=== PATIENT | male | born 1960 | race Caucasian/White ===

== ENCOUNTER 2022-11-18 15:31 | Emergency (ER) | payer OTHER, SELFPAY ==
--- NOTE | ~2022-11-18 | XR_ITS ---
EXAMINATION: XR HAND, LEFT CLINICAL INFORMATION: Left hand laceration. COMPARISON: None available. TECHNIQUE: PA, lateral, and oblique views of the left hand. FINDINGS: No discrete soft tissue defect is seen. There is swelling along the dorsum of the hand. No fracture. No radiopaque foreign body. XR/XR hand LT min 3V IMPRESSION: Dorsal soft tissue swelling. No fracture.
[2022-11-18 15:43] VITALS: BP 145/75; PULSE 69; RESP 18; TEMP 36.8; O2SAT 98; BMI 30.7
--- NOTE | 2022-11-18 15:44 | ED.GENADULT ---
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 Patient reports this was accidental. Denies numbness and tingling. Reports some pain at the site and slight swelling. Patient unsure of tetanus status. Denies fevers and chills. <RICHMOND Mccall - Last Filed: 11/18/22 16:31> Related Data Allergies/adverse reactions: Allergies Allergy/AdvReac Type Severity Reaction Status Date / Time No Known Allergies Allergy Verified 11/18/22 15:46 <RICHMOND Witt - Last Filed: 11/18/22 15:48> Review of Systems Review of Systems: Constitutional : No Fever, No Chills, Cardiovascular : No Chest Pain, No SOB Respiratory : No Dyspnea Gastrointestinal : No abdominal pain Musculoskeletal : No Joint Swelling Skin : No rash, positive skin laceration Neuro : No Weakness, No Numbness Psych : No SI/HI <RICHMOND Mccall Last Filed: 11/18/22 16:31> Yes all other systems are reviewed and are negative <RICHMOND Mccall Last Filed: 11/18/22 16:31> [facility] Past Medical History Attestation statement: The following information was validated with the patient. <RICHMOND Mccall Last Filed: 11/18/22 16:31> Source: old records reviewed and nursing notes reviewed <RICHMOND Mccall - Last Filed: 11/18/22 16:31> Social History Social History: Social History Advance Directives: No Advance Directives Information Provided: Yes <RICHMOND Witt - Last Filed: 11/18/22 15:48> Physical Exam ED Vital Signs: Vital Signs - 24 hr 11/18/22 15:43 Temperature 98.2 F Pulse Rate 69 Respiratory Rate 18 Blood Pressure 145/75 H Pulse Oximetry 98 Oxygen Delivery Method Room Air BMI result Body Mass Index 30.7 <RICHMOND Witt - Last Filed: 11/18/22 15:48> Vital Signs - 24 hr 11/18/22 15:43 Temperature 98.2 F Pulse Rate 69 Respiratory Rate 18 Blood Pressure 145/75 H Pulse Oximetry 98 Oxygen Delivery Method Room Air BMI result Body Mass Index 30.7 vss <RICHMOND Mccall - Last Filed: 11/18/22 16:31> Appearance: Alert.? Oriented X3.? No acute distress.? Head: Normocephalic, atraumatic, no step-offs or deformities Eyes: Pupils equal, round and reactive to light.? Neck: Normal inspection.? Neck supple.? CVS: Normal heart rate and rhythm.? Pulses normal.? Respiratory: No respiratory distress.? Breath sounds normal.? Abdomen: Soft and nontender.? Skin: Skin warm and dry.? Normal skin color.? Normal skin turgor.?+ 4 cm linear skin tear to the dorsal aspect of left hand. 2+ radial pulses equal and b/l. Normal brisk cap refil <2 seconds. No FB visualized. Wedding band in place to L hand ( refusing to take it off) Extremities: No lower extremity edema.? No calf ttp. 5/5 strength to bilateral upper and lower extremities Neuro: Oriented X 3.? No motor deficit.? No sensory deficit. CN 2-12 intact <RICHMOND Mccall Last Filed: 11/18/22 16:31> Course Course Course Narrative: This is an RME: Additional HPI, ROS, PE not included below will be deferred to primary provider. This is a 62 year old male presenting for evaluation of left hand laceration which occurred today. Patient reports he was using a dome extremity accidentally lacerated his left hand. He has full range of motion of his hands and fingers. Distal sensation and circulation intact. He has an approximately 4cm full thickness linear laceration noted to the dorsal aspect of his left hand. Patient refuses to remove wedding band as he not taken this off in 40 years. Plan: xray, tdap, suture repair. <RICHMOND Witt Last Filed: 11/18/22 15:48> Reevaluation(s) Reevaluation #1: Steri-Strips applied, patient tolerated procedure well. Edges well approximated. Dressing applied educated him to keep this dressing on for 24-48 hours. In allow for the Steri-Strips to fall off on their own. To keep area dry. Educated patient on diagnosis and treatment plan, answered all question, patient verbalizes understanding. At this time patient will be discharged home, advised to return with new or worsening symptoms. Educated on worrisome signs and symptoms and when to return. At this time I feel comfortable discharge home. <RICHMOND Mccall Last Filed: 11/18/22 16:31> Medical Decision Making Medical Decision Making [facility] Narrative: [id number] 62-year-old male presents with laceration to left hand, accidental with industrial mixer. Physical exam significant for Skin warm and dry.? Normal skin color.? Normal skin turgor.?+ 4 cm linear skin tear to the dorsal aspect of left hand. 2+ radial pulses equal and b/l. Normal brisk cap refil <2 seconds. No FB visualized. Wedding band in place to L hand ( refusing to take it off) Likely linear laceration unlikely fracture, dislocation, no signs of neurovascular compromise or threatened limb. Plan steri strips. Will give tetanus shot. Sutures were considered however patient's skin very thin and sutures would not be appropriate for this type of repair. <RICHMOND Mccall Last Filed: 11/18/22 16:31> Differential Diagnosis Differential Diagnoses: The differential diagnosis associated with the presentation includes <RICHMOND Mccall Last Filed: 11/18/22 16:31> Likely linear laceration unlikely fracture, dislocation, no signs of neurovascular compromise or threatened limb. <RICHMOND Mccall Last Filed: 11/18/22 16:31> Admission/Observation Consideration of admission/observation: Escalation of care including admission/observation considered <RICHMOND Mccall - Last Filed: 11/18/22 16:31> Core Measures AMI core measures followed: Yes <RICHMOND Mccall - Last Filed: 11/18/22 16:31> Measure exclusions: not indicated <RICHMOND Mccall - Last Filed: 11/18/22 16:31> Critical Care Time Critical Care Time Critical Care Time: No <RICHMOND Mccall Last Filed: 11/18/22 16:31> Discharge Plan Discharge Clinical Impression: Skin tear of left upper extremity <RICHMOND Witt Last Filed: 11/18/22 15:48> Patient Disposition: Home, Self-Care <RICHMOND Witt - Last Filed: 11/18/22 15:48> Instructions: Laceration (ED) <RICHMOND Witt Last Filed: 11/18/22 15:48> Additional Instructions: Take your medications as prescribed. If you were prescribed antibiotics today, it is important that you take your medication to their entirety, do not skip any doses, do not finish them early. Follow-up with your primary care provider this week. Return to the emergency department with new or worsening symptoms. Such as fevers, chills, chest pain, shortness of breath, nausea, vomiting, dizziness, headache, vision changes, lethargy In case of emergency call 911 Your were given year tetanus booster today. Keep white dressing in place for 24-48 hours, keep clean, dry. After 24-48 hours you can remove the white dressing, do not pull the Steri-Strips off, they will fall off on their own. As we told in the emergency department the wedding band can potentially compromised blood supply to your hand/finger, we recommend you take this off. <RICHMOND Witt Last Filed: 11/18/22 15:48> Referrals: Physician,Nonstaff [Primary Care Provider] - 2 days <RICHMOND Witt Last Filed: 11/18/22 15:48> Stand Alone Forms: Work/School Release <RICHMOND Witt Last Filed: 11/18/22 15:48>
[2022-11-18] MEDS: Diphth,Pertus(ACell),Tet Adult 0.5 ML SYRINGE IM (17:04)
[2022-11-18 17:11] VITALS: BP 135/89; PULSE 75; RESP 17; O2SAT 100
== END 2022-11-18 17:15 | disposition home or self-care (01) ==
PROVIDERS: Emergency Provider Emergency Medicine
DX: S61.412A Laceration without foreign body of left hand, initial encounter (principal); W29.0XXA Contact with powered kitchen appliance, initial encounter; Y93.G3 Activity, cooking and baking; Y92.010 Kitchen of single-family (private) house as the place of occurrence of the external cause; Y99.9 Unspecified external cause status
CPT/HCPCS: 73130; 90471; 90715; 99284